=== PATIENT | male | born 2000 | race Two or more races ===

== ENCOUNTER 2022-04-21 17:04 | Inpatient (IN) ==
--- NOTE | 2022-04-21 20:16 | DR.GENAD ---
HPI Time Seen Time Seen by Provider: 04/21/22 20:15 PCP Primary Care Physician: NONE HPI Comment HPI Comment: Believes he was stung by a stingray about two weeks ago, spent one night in hospital and discharged on levaquin x 4 days, keflex and doxycycline for cellulitis of rt ankle; little improvement and placed on another round of keflex and doxycycline two days ago (?); ankle is still swollen, red and painful with "black" drainage intermittently; no fever, chills, abd pain, n/v/d. Complaint/Symptoms Chief Complaint:: PT STATES HE WAS BIT BY A STINGRAY X 10 DAYS AGO AND HE WENT TO THE HOSPITAL IN [place] AND WAS ADMITTED OVERNIGHT FOR IV ANTIBIOTICS. HE STATES IT IS NOT GETTING ANY BETTER, IT IS RED AND SWOLLEN AND HAS SOME BLACK DRAINAGE COMING OUT OF IT. HE STATES IT HURTS IN THE BONE. IT IS LOCATED ON THE RIGHT INNER ANKLE. Self Treatment fo Chief Complaint: PO ANTIBIOTICS, PAIN MEDS Source History Provided: Patient Mode of Arrival Mode of Arrival: Ambulatory Timing Onset of Chief Complaint: 04/11/22 PMH PMH Past Medical History: No Past Surgical History: No Family History History of Family Medical Conditions: No Social History Does patient currently use any type of tobacco product: No Have you used tobacco products in the last 12 months: No Type of Tobacco Use: None Does any household member use tobacco: No Alcohol Use: None Do you use any recreational Drugs:: No Lives With: Family Lives Where: Home Infectious screening In the last 2 months have you had wt loss of >10#?: NO Have you had fever, night sweats or hemotysis?: No Have you traveled outside the country in the last 6 months?: No Isolation: Standard ROS Review of Systems Constitutional: No Symptoms Reported Eyes: No Symptoms Reported ENTM: No Symptoms Reported Respiratoy: No Symptoms Reported Cardiovascular: No Symptoms Reported Gastrointestinal/Abdominal: No Symptoms Reported Genitourinary: No Symptoms Reported Neurological: No Symptoms Reported Integumentary: No Symptoms Reported Hematologic/Lymphatic: No Symptoms Reported Endocrine: No Symptoms Reported Psychiatric: No Symptoms Reported PE Vital Signs Vitals: Temperature 98.1 F Pulse Rate 79 Respiratory Rate 20 Blood Pressure 117/89 O2 Sat by Pulse Oximetry 100 General Limitations: No Limitations General Appearance: Alert and In No Apparent Distress Head Head Exam: Normal Inspection Eyes Eye exam: Normal Appearance ENT ENT Exam: Normal Exam External Ear Exam: Normal External Inspection TM/Canal Exam: Bilateral: Normal Nose Exam: Normal Nose Exam Mouth Exam: Normal Inspection Throat Exam: Normal Inspection Neck Neck Exam: Normal Inspection Chest Chest Inspection: Normal Inspection Respiratory Respiratory Exam: Normal Lung Sounds Bilat Respiratory Exam: Bilateral: Clear to Auscultation Cardiovascular Cardiovascular Exam: Regular Rate and Normal Rhythm Abdominal Exam Abdominal Exam: Normal Inspection, Normal Bowel Sounds and Soft Extremities Extremities Exam: Tenderness and Edema (red, swollen medial malleolus with streaking about 2 inch up mid lateral rooney, 1 cm black spot center of redness without drainage) Back Back Exam: Normal Inspection Neurologic Neurological Exam: Alert and Oriented X3 Psychiatric Psychiatric Exam: Normal Affect and Normal Mood MDM Differential Diagnosis Differential Diagnosis: foreign body, osteomyelitis, cellulitis, abscess COURSE Reevaluation 1st: Unchanged ROR Labs Reviewed Laboratory Results Reviewed?: Yes Result Diagrams: 04/22/22 03:15 04/22/22 03:15 Laboratory: WBC 10.6 X10^3/uL (3.6-10.0) H 04/21/22 20:54 RBC 5.17 X10^6/uL (4.7-6.0) 04/21/22 20:54 Hgb 15.4 g/dL (13.5-18.0) 04/21/22 20:54 Hct 43.6 % (42.0-54.0) 04/21/22 20:54 MCV 84.3 fL (80.0-100.0) 04/21/22 20:54 MCH 29.8 pg (27.0-34.0) 04/21/22 20:54 MCHC 35.3 g/dL (33.0-35.0) H 04/21/22 20:54 RDW 13.5 % (11.6-16.5) 04/21/22 20:54 Plt Count 271 X10^3/uL (150.0-450.0) 04/21/22 20:54 MPV 7.9 fL (7.4-11.0) 04/21/22 20:54 Neut % (Auto) 57.2 % (42.0-75.0) 04/21/22 20:54 Lymph % (Auto) 29.7 % (21.0-51.0) 04/21/22 20:54 [place] % (Auto) 7.9 % (0.0-13.0) 04/21/22 20:54 Eos % (Auto) 4.5 % (0.9-2.9) H 04/21/22 20:54 Baso % (Auto) 0.7 % (0.2-1.0) 04/21/22 20:54 Neut # (Auto) 6.1 x10^3/uL (2.2-4.8) H 04/21/22 20:54 Lymph # (Auto) 3.1 X10^3/uL (1.3-2.9) H 04/21/22 20:54 [place] # (Auto) 0.8 x10^3/uL (0.3-0.8) 04/21/22 20:54 Eos # (Auto) 0.5 x10^3/uL (0.0-0.2) H 04/21/22 20:54 Baso # (Auto) 0.1 X10^3/uL (0.0-0.1) 04/21/22 20:54 Absolute Nucleated RBC 0.0 /100WBC 04/21/22 20:54 Sodium 137 mmol/L (136-145) 04/21/22 20:54 Corrected Sodium TNP 04/21/22 20:54 Potassium 3.8 mmol/L (3.5-5.1) 04/21/22 20:54 Chloride 101 mmol/L (98-107) 04/21/22 20:54 Carbon Dioxide 28.0 mmol/L (21-32) 04/21/22 20:54 BUN 9 mg/dL (7-18) 04/21/22 20:54 Creatinine 0.75 mg/dL (0.70-1.30) 04/21/22 20:54 Est GFR (MDRD) Af Amer > 60 (>60) 04/21/22 20:54 Est GFR (MDRD) Non-Af > 60 (>60) 04/21/22 20:54 Glucose 90 mg/dL (65-99) 04/21/22 20:54 Calcium 9.0 mg/dL (8.5-10.1) 04/21/22 20:54 Corrected Calcium TNP 04/21/22 20:54 Total Bilirubin 0.40 mg/dL (0.2-1.0) 04/21/22 20:54 AST 23 Units/L (15-37) 04/21/22 20:54 ALT 27 Units/L (12-78) 04/21/22 20:54 Alkaline Phosphatase 85 Units/L (75-270) 04/21/22 20:54 Total Protein 8.1 g/dL (6.4-8.2) 04/21/22 20:54 Albumin 4.0 g/dL (3.4-5.0) 04/21/22 20:54 Globulin 4.1 g/dL (2.5-4.5) 04/21/22 20:54 Albumin/Globulin Ratio 1.0 Ratio (1.1-2.1) L 04/21/22 20:54 SARS-CoV-2 (PCR) Negative (NEGATIVE) 04/21/22 23:01 Influenza Type A (PCR) Negative (NEGATIVE) 04/21/22 23:01 Influenza Type B (PCR) Negative (NEGATIVE) 04/21/22 23:01 RSV (PCR) Negative (NEGATIVE) 04/21/22 23:01 XRAY XRAY Interpreted by: Self X-ray Results: rt ankle xr: no acute findings Opioid Opioid Risk Tool Total: 0 Total Score Risk Category: Low Risk Copyright: Brad BRUCE predicting aberrant behaviors Discharge Plan Diagnosis Discharge Problem: Ankle cellulitis Discharge Plan Patient Disposition: ADMITTED INPATIENT Condition: Stable
[2022-04-21] MEDS ORDERED: ZOSYN VIAL 3.375 GRAMS IV ONE (20:37)
[2022-04-21] MEDS ORDERED: NS 100 ML IV 100 ML ONE (20:38)
[2022-04-21] MEDS: ZOSYN VIAL 3.375 GRAMS 3.375 G in NS 100 ML IV 100 ML IV SCH ×2 (20:52→23:17)
[2022-04-21 21:06] LABS: BASOPHILS # (AUTO) 0.1 X10^3/uL (0.0-0.1); BASOPHILS % (AUTO) 0.7 % (0.2-1.0); EOSINOPHILS # (AUTO) 0.5 x10^3/uL (0.0-0.2); EOSINOPHILS % (AUTO) 4.5 % (0.9-2.9); HEMATOCRIT 43.6 % (42.0-54.0); HEMOGLOBIN 15.4 g/dL (13.5-18.0); LYMPHOCYTES # (AUTO) 3.1 X10^3/uL (1.3-2.9); LYMPHOCYTES % (AUTO) 29.7 % (21.0-51.0); MEAN CORPUSCULAR HEMOGLOBIN 29.8 pg (27.0-34.0); MEAN CORPUSCULAR HGB CONC 35.3 g/dL (33.0-35.0); MEAN CORPUSCULAR VOLUME 84.3 fL (80.0-100.0); MEAN PLATELET VOLUME 7.9 fL (7.4-11.0); MONOCYTES # (AUTO) 0.8 x10^3/uL (0.3-0.8); MONOCYTES % (AUTO) 7.9 % (0.0-13.0); NEUTROPHILS # (AUTO) 6.1 x10^3/uL (2.2-4.8); NEUTROPHILS % (AUTO) 57.2 % (42.0-75.0); RED BLOOD COUNT 5.17 X10^6/uL (4.7-6.0); RED CELL DISTRIBUTION WIDTH 13.5 % (11.6-16.5); WHITE BLOOD COUNT 10.6 X10^3/uL (3.6-10.0)
[2022-04-21 21:12] LABS: BLOOD UREA NITROGEN 9 mg/dL (7-18); CHLORIDE 101 mmol/L (98-107); CREATININE 0.75 mg/dL (0.70-1.30); SODIUM 137 mmol/L (136-145); eGFR NON BLACK RACES > 60 (>60)
[2022-04-21 21:30] LABS: ALANINE AMINOTRANSFERASE 27 Units/L (12-78); ALKALINE PHOSPHATASE 85 Units/L (75-270); ASPARTATE AMINO TRANSFERASE 23 Units/L (15-37); TOTAL PROTEIN 8.1 g/dL (6.4-8.2)
[2022-04-21] MEDS ORDERED: VANCOMYCIN IV *PREMIX 1 G/200 ML BAG 1 G/200 ML PIGGYBACK IV ONE (22:58)
[2022-04-21] MEDS ORDERED: ZOSYN VIAL 3.375 GRAMS 3.375 G in NS 100 ML IV 100 ML IV SCH (23:04)
[2022-04-21] MEDS ORDERED: NS 1,000 ML IV 1,000 ML ONE (23:05)
[2022-04-21] MEDS ORDERED: NS 250 ML IV 250 ML IV ONE (23:05)
[2022-04-21] MEDS ORDERED: VANCOMYCIN HCL ONE (23:05)
[2022-04-21] MEDS ORDERED: ZOFRAN INJ 4 MG VIAL IVP PRN (23:13)
[2022-04-21] MEDS: NS 1,000 ML IV 1,000 ML IV SCH (23:15)
[2022-04-21] MEDS ORDERED: PHARMACY CONSULT - VANCOMYCIN XX SCH (23:45)
[2022-04-22] MEDS ORDERED: BENADRYL INJ 50 MG VIAL ONE (00:33)
[2022-04-22] MEDS ORDERED: BENADRYL INJ 50 MG VIAL IVP ONE (00:42)
--- NOTE | 2022-04-22 01:36 | RAD ---
HISTORYPT STATES HE WAS BIT BY A STINGRAY X 10 DAYS AGO AND HE WENT TO THE HOSPITAL IN [place] AND WAS ADMITTED OVERNIGHT FOR IV ANTIBIOTICS. HE STATES IT IS NOT GETTING ANY BETTER, IT IS RED AND SWOLLEN AND HAS SOME BLACK DRAINAGE Relevant Clinical InformationSTUDMAYI, COMPARISONNone.FINDINGSNo acute cortical disruption or dislocation can be identified. The ankle mortise remains well aligned. There is soft tissue swelling of the medial ankle joint.. The visualized portions of the talus and calcaneus are unremarkable.IMPRESSION1. No acute fractures or dislocations.2. Soft tissue swelling of the medial ankle joint is noted.Electronically signed by: Dolores Jones (Apr 22, 2022 01:34:19)
[2022-04-22 04:38] LABS: ALANINE AMINOTRANSFERASE 26 Units/L (12-78); ALBUMIN 3.5 g/dL (3.4-5.0); ALKALINE PHOSPHATASE 82 Units/L (75-270); ASPARTATE AMINO TRANSFERASE 21 Units/L (15-37); BLOOD UREA NITROGEN 9 mg/dL (7-18); CALCIUM 8.4 mg/dL (8.5-10.1); CARBON DIOXIDE 28.5 mmol/L (21-32); CHLORIDE 104 mmol/L (98-107); SODIUM 139 mmol/L (136-145); TOTAL PROTEIN 7.2 g/dL (6.4-8.2); eGFR NON BLACK RACES > 60 (>60)
[2022-04-22 04:56] LABS: BASOPHILS # (AUTO) 0.1 X10^3/uL (0.0-0.1); BASOPHILS % (AUTO) 0.6 % (0.2-1.0); EOSINOPHILS # (AUTO) 0.4 x10^3/uL (0.0-0.2); EOSINOPHILS % (AUTO) 4.1 % (0.9-2.9); HEMATOCRIT 42.8 % (42.0-54.0); LYMPHOCYTES # (AUTO) 3.2 X10^3/uL (1.3-2.9); LYMPHOCYTES % (AUTO) 30.7 % (21.0-51.0); MEAN CORPUSCULAR HEMOGLOBIN 29.9 pg (27.0-34.0); MEAN CORPUSCULAR VOLUME 85.2 fL (80.0-100.0); MEAN PLATELET VOLUME 8.2 fL (7.4-11.0); MONOCYTES % (AUTO) 9.6 % (0.0-13.0); NEUTROPHILS # (AUTO) 5.7 x10^3/uL (2.2-4.8); RED BLOOD COUNT 5.02 X10^6/uL (4.7-6.0); RED CELL DISTRIBUTION WIDTH 13.6 % (11.6-16.5); WHITE BLOOD COUNT 10.3 X10^3/uL (3.6-10.0)
[2022-04-22] MEDS ORDERED: ZOSYN VIAL 3.375 GRAMS IV ONE ×2 (05:05→13:46)
[2022-04-22] MEDS ORDERED: NS 100 ML IV 100 ML ONE ×2 (05:06→13:47)
[2022-04-22] MEDS: ZOSYN VIAL 3.375 GRAMS 3.375 G in NS 100 ML IV 100 ML IV SCH ×3 (05:32→22:18)
--- NOTE | 2022-04-22 08:10 | DR.H&P ---
H&P History & Physical for Day of: H&P Date: 04/22/22 Chief Complaint Chief Complaint: Right ankle pain and swelling Allergies Allergies Allergy/AdvReac Type Severity Reaction Status Date / Time vancomycin Allergy Verified 04/22/22 01:15 History of Present Illness History of Present Illness: Pt is a 21 year old male no past medical history presenting with right ankle pain, edema, erythema w/ drainage for the past two weeks. [place] and believes he was stung by a stingray. He went to hospital stayed one day and was given Levaquin course to complete. He also states he had course of keflex and doxy but unclear where he was prescribed antibiotics. Denies fevers, chills. Labs/imaging: Wbc 10.3, Hgb 15, Plt 260, Na 139, K 3.9, Creatinine 0.90, Glucose 101, COVID-19 negative, XR right ankle was obtained that revealed:Soft tissue swelling of the medial ankle joint is noted. Pt admitted for ankle cellulitis. Will start on IV antibiotics: Clindamycin and Zosyn. Obtain CT ankle to further characterize infection. Will consult surgery-Dr Lamar for further evaluation of possible underlying abscess. On exam area not currently draining for cultures to be obtained. Will continue to closely monitor and follow up labs/imaging. Past Surgical History Surgical History: No History Social History Does patient currently use any type of tobacco product: No Have you used tobacco products in the last 12 months: No Type of Tobacco Use: None Does any household member use tobacco: No Alcohol Use: None Drug Use: None Medications Home Medications: vancomycin Allergy (Verified 04/22/22 01:15) CONTINUE taking the following medications cephalexin 500 mg capsule 1 cap PO TID 04/21/22 [History] doxycycline hyclate 100 mg capsule 1 cap PO BID 04/21/22 [History] Labs Result Diagrams: 04/22/22 03:15 04/22/22 03:15 Labs: Laboratory WBC 10.3 X10^3/uL (3.6-10.0) H 04/22/22 03:15 RBC 5.02 X10^6/uL (4.7-6.0) 04/22/22 03:15 Hgb 15.0 g/dL (13.5-18.0) 04/22/22 03:15 Hct 42.8 % (42.0-54.0) 04/22/22 03:15 MCV 85.2 fL (80.0-100.0) 04/22/22 03:15 MCH 29.9 pg (27.0-34.0) 04/22/22 03:15 MCHC 35.0 g/dL (33.0-35.0) 04/22/22 03:15 RDW 13.6 % (11.6-16.5) 04/22/22 03:15 Plt Count 260 X10^3/uL (150.0-450.0) 04/22/22 03:15 MPV 8.2 fL (7.4-11.0) 04/22/22 03:15 Neut % (Auto) 55.0 % (42.0-75.0) 04/22/22 03:15 Lymph % (Auto) 30.7 % (21.0-51.0) 04/22/22 03:15 [place] % (Auto) 9.6 % (0.0-13.0) 04/22/22 03:15 Eos % (Auto) 4.1 % (0.9-2.9) H 04/22/22 03:15 Baso % (Auto) 0.6 % (0.2-1.0) 04/22/22 03:15 Neut # (Auto) 5.7 x10^3/uL (2.2-4.8) H 04/22/22 03:15 Lymph # (Auto) 3.2 X10^3/uL (1.3-2.9) H 04/22/22 03:15 [place] # (Auto) 1.0 x10^3/uL (0.3-0.8) H 04/22/22 03:15 Eos # (Auto) 0.4 x10^3/uL (0.0-0.2) H 04/22/22 03:15 Baso # (Auto) 0.1 X10^3/uL (0.0-0.1) 04/22/22 03:15 Absolute Nucleated RBC 0.1 /100WBC 04/22/22 03:15 Sodium 139 mmol/L (136-145) 04/22/22 03:15 Corrected Sodium TNP 04/22/22 03:15 Potassium 3.9 mmol/L (3.5-5.1) 04/22/22 03:15 Chloride 104 mmol/L (98-107) 04/22/22 03:15 Carbon Dioxide 28.5 mmol/L (21-32) 04/22/22 03:15 BUN 9 mg/dL (7-18) 04/22/22 03:15 Creatinine 0.90 mg/dL (0.70-1.30) 04/22/22 03:15 Est GFR (MDRD) Af Amer > 60 (>60) 04/22/22 03:15 Est GFR (MDRD) Non-Af > 60 (>60) 04/22/22 03:15 Glucose 101 mg/dL (65-99) H 04/22/22 03:15 Calcium 8.4 mg/dL (8.5-10.1) L 04/22/22 03:15 Corrected Calcium TNP 04/22/22 03:15 Total Bilirubin 0.40 mg/dL (0.2-1.0) 04/22/22 03:15 AST 21 Units/L (15-37) 04/22/22 03:15 ALT 26 Units/L (12-78) 04/22/22 03:15 Alkaline Phosphatase 82 Units/L (75-270) 04/22/22 03:15 Total Protein 7.2 g/dL (6.4-8.2) 04/22/22 03:15 Albumin 3.5 g/dL (3.4-5.0) 04/22/22 03:15 Globulin 3.7 g/dL (2.5-4.5) 04/22/22 03:15 Albumin/Globulin Ratio 0.9 Ratio (1.1-2.1) L 04/22/22 03:15 SARS-CoV-2 (PCR) Negative (NEGATIVE) 04/21/22 23:01 Influenza Type A (PCR) Negative (NEGATIVE) 04/21/22 23:01 Influenza Type B (PCR) Negative (NEGATIVE) 04/21/22 23:01 RSV (PCR) Negative (NEGATIVE) 04/21/22 23:01 Review of Systems Constitutional: No Symptoms Reported Eyes: No Symptoms Reported ENT: No Symptoms Reported Respiratory: No Symptoms Reported Cardiovascular: No Symptoms Reported Gastrointestinal: No Symptoms Reported Genitourinary: No Symptoms Reported Musculoskeletal: No Symptoms Reported Skin: Other (swelling and redness right ankle) Neurological: No Symptoms Reported Physical Exam Vital Signs: Temperature 97.4 F Pulse Rate [Left Brachial] 73 Pulse Rate 79 Respiratory Rate 18 Blood Pressure [Left Arm] 90/54 Blood Pressure 117/89 O2 Sat by Pulse Oximetry 99 Oriented: Normal Eyes: Normal Ear: Normal Nose: Normal Throat: Normal Respiratory: Clear Throughout Cardiovascular: Normal : Normal Auscultation: Bowel Sounds: Normal Palpation: Normal Tenderness: Normal Skin: Normal and Other (erythema and edema right medial ankle) Musculoskeletal: Normal Psychiatric: Normal Mood Description: Calm and Appropriate Affect: Normal Speech Pattern: Clear and Appropriate Assessment/Plan (1) Ankle cellulitis: Narrative Support Text: IV antibiotics Order CT right ankle Consult surgery Status: Acute Review H&P Reviewed: Yes Patient was examined?: Yes
[2022-04-22] MEDS ORDERED: VANCOMYCIN IV *PREMIX 1.25 G/250 ML BAG 1.25 G/250 ML PIGGYBACK IV SCH (11:00)
[2022-04-22] MEDS ORDERED: CLEOCIN 600 MG IV PREMIX 600 MG/50 ML BAG IV ONE (13:46)
[2022-04-22] MEDS: CLEOCIN 600 MG IV PREMIX 600 MG/50 ML BAG IV SCH ×2 (13:51→22:18)
[2022-04-22] MEDS ORDERED: NS 1,000 ML IV 1,000 ML ONE (13:55)
--- NOTE | 2022-04-22 14:29 | CT ---
Exam:LOWER EXT WITH CONIndication: RIGHT ANKLE CELLULITIS; STUNG BY STINGRAY IN RIGHT ANKLE COUPLE DAYS AGOComparison: [None available]Technique: Axial images of the [right ankle] were obtained with coronal and sagittal reformatted images performed. Intravenous contrast administration [ was ] performed.Dose reduction techniques including Automated Exposure Control (AEC) and adjustment of mA and kV were utilized.Findings: [There is severe inflammatory change within the subcutaneous tissues of the right ankle, there is non localizing fluid demonstrating enhancement noted posterior to the medial malleolus for example on axial image 46. There is no drainable fluid collection in this location. There is heterogeneous fluid tracking along the posterior tibialis tendon with increased enhancement of the posterior tibialis tendon and myotendinous junction seen for example on axial image 29. The flexor hallucis longus and flexor digitorum longus tendons are grossly intact.There is no fracture of the medial or lateral malleolus. There is no periosteal reaction or cortical destruction of the medial malleolus to suggest osteomyelitis.Os trigonum is noted, mild degenerative change at the pseudoarticulation is noted.Achilles tendon and plantar fascia are grossly intact.IMPRESSIONFairly severe inflammatory change and infection within subcutaneous tissues posterior to the medial malleolus, no drainable fluid collection is present however developing phlegmon is noted posterior to the medial malleolus.Increased enhancement and peritendonous fluid within the posterior tibialis tendon extending to the myotendinous junction is consistent with an infectious tenosynovitis.No periosteal reaction or cortical destruction of the medial malleolus to suggest an acute osteomyelitisSurgical consultation recommended for further evaluation.Incidental, nonacute findings as described above.Electronically signed by: PAYTON YUSUF (Apr 22, 2022 14:27:38)
[2022-04-22] MEDS: NS 1,000 ML IV 1,000 ML IV SCH (14:48)
[2022-04-23] MEDS: NS 1,000 ML IV 1,000 ML IV SCH ×2 (05:43→21:33)
[2022-04-23] MEDS: ZOSYN VIAL 3.375 GRAMS 3.375 G in NS 100 ML IV 100 ML IV SCH ×3 (05:44→21:33)
[2022-04-23] MEDS: CLEOCIN 600 MG IV PREMIX 600 MG/50 ML BAG IV SCH ×3 (05:44→21:33)
[2022-04-23 06:11] LABS: BASOPHILS # (AUTO) 0.1 X10^3/uL (0.0-0.1); BASOPHILS % (AUTO) 0.7 % (0.2-1.0); EOSINOPHILS # (AUTO) 0.4 x10^3/uL (0.0-0.2); EOSINOPHILS % (AUTO) 4.4 % (0.9-2.9); HEMATOCRIT 41.9 % (42.0-54.0); HEMOGLOBIN 14.6 g/dL (13.5-18.0); LYMPHOCYTES # (AUTO) 2.5 X10^3/uL (1.3-2.9); LYMPHOCYTES % (AUTO) 27.2 % (21.0-51.0); MEAN CORPUSCULAR HEMOGLOBIN 29.6 pg (27.0-34.0); MEAN CORPUSCULAR HGB CONC 34.9 g/dL (33.0-35.0); MEAN PLATELET VOLUME 8.3 fL (7.4-11.0); MONOCYTES # (AUTO) 0.9 x10^3/uL (0.3-0.8); MONOCYTES % (AUTO) 10.2 % (0.0-13.0); NEUTROPHILS # (AUTO) 5.2 x10^3/uL (2.2-4.8); NEUTROPHILS % (AUTO) 57.5 % (42.0-75.0); RED BLOOD COUNT 4.92 X10^6/uL (4.7-6.0); RED CELL DISTRIBUTION WIDTH 13.4 % (11.6-16.5)
[2022-04-23 06:23] LABS: ALANINE AMINOTRANSFERASE 23 Units/L (12-78); ALBUMIN 3.4 g/dL (3.4-5.0); ALKALINE PHOSPHATASE 77 Units/L (75-270); ASPARTATE AMINO TRANSFERASE 19 Units/L (15-37); BLOOD UREA NITROGEN 6 mg/dL (7-18); CALCIUM 8.8 mg/dL (8.5-10.1); CARBON DIOXIDE 26.2 mmol/L (21-32); CHLORIDE 104 mmol/L (98-107); CREATININE 0.84 mg/dL (0.70-1.30); SODIUM 138 mmol/L (136-145); eGFR NON BLACK RACES > 60 (>60)
--- NOTE | 2022-04-23 09:35 | DR.CONSULT ---
CONSULT Consultation for Day of: Date: 04/22/22 Chief Complaint Chief Complaint: Wound and swelling right ankle posterior to right medial malleolus Allergies Allergies Allergy/AdvReac Type Severity Reaction Status Date / Time vancomycin Allergy Verified 04/22/22 01:15 History of Present Illness History of Present Illness: 21 yo male received " stingray sting" to right medial ankle 12 days ago. Admitted overnight at [facility]. Now on multiple po antibiotics and has pain and swelling still over the site of the injury to posterior area of right medial malleolus. Past Surgical History Surgical History: No History Social History Does patient currently use any type of tobacco product: No Have you used tobacco products in the last 12 months: No Type of Tobacco Use: None Does any household member use tobacco: No Alcohol Use: None Drug Use: None Medications Home Medications: vancomycin Allergy (Verified 04/22/22 01:15) CONTINUE taking the following medications cephalexin 500 mg capsule 1 cap PO TID 04/21/22 [History] doxycycline hyclate 100 mg capsule 1 cap PO BID 04/21/22 [History] Review of Systems Constitutional: See HPI Eyes: No Symptoms Reported ENT: No Symptoms Reported Respiratory: No Symptoms Reported Cardiovascular: No Symptoms Reported Gastrointestinal: No Symptoms Reported Genitourinary: No Symptoms Reported Musculoskeletal: No Symptoms Reported Skin: See HPI Neurological: No Symptoms Reported Physical Exam Vital Signs: Temperature 98.3 F Pulse Rate [Left Brachial] 62 Pulse Rate 79 Respiratory Rate 18 Blood Pressure [Left Arm] 96/47 Blood Pressure 117/89 O2 Sat by Pulse Oximetry 98 wbc=9.0,, CT right ankle Phelgmon of area of concern right medial ankle Oriented: Normal, Time, Person and Place Eyes: Normal Ear: Normal Nose: Normal Throat: Normal Respiratory: Clear Throughout Cardiovascular: Normal : Normal Auscultation: Bowel Sounds: Normal Palpation: Normal Tenderness: Normal Skin: Other (5 cm area induration of posterior aspect right medial malleolus, no significant redness, tender to touch) Plan (1) Ankle cellulitis: Status: Acute Narrative Support Text: Continue IV antibiotics , Will plan incision and drainage of this area of phlegmon right medial ankle in the OR.
[2022-04-23] MEDS ORDERED: VERSED ONE (11:47)
[2022-04-23] MEDS ORDERED: FENTANYL VIAL INJ 100 mcg ONE (11:47)
[2022-04-23] MEDS ORDERED: LR 1,000 ML IV 1,000 ML IV ONE (11:50)
[2022-04-23] MEDS ORDERED: POLYMYXIN B SULFATE ONE (11:52)
[2022-04-23] MEDS ORDERED: BETADINE SOLN ONE (11:53)
[2022-04-23] MEDS ORDERED: DIPRIVAN VIAL 20 ML ONE (11:57)
[2022-04-23] MEDS ORDERED: MARCAINE 0.5% ONE (12:04)
[2022-04-23] MEDS ORDERED: XYLOCAINE 1 % (PLAIN) ONE (12:05)
--- NOTE | 2022-04-23 13:35 | OR.IMMED ---
IMMEDIATE POST-OP NOTE Immediate Post-Op Note Pre-Op Diagnosis: Abscess/ Phlegmon right medial ankle Post-Op Diagnosis: same Procedure: Incise, drain and pack abscess/ phlegmon of the right medial ankle Description of Procedure: see operative summary Surgeon/Horse Show Judge: Brianda Specimens Removed: Wound cultured Complications: none Progress Notes: To floor, continue IV antibiotics, pack wound daily, await cultures and sensitivities. Final Diagnosis: Abscess/ Phlegmon right medial ankle after sting ray sting.
--- NOTE | 2022-04-23 13:46 | DR.OPNOTE ---
OP NOTE Pre-Op Diagnosis: Abscess /phlegmon right medial ankle after stingray sting Post-Op Diagnosis: same Procedure Date Date Of Procedure: 04/23/22 Procedure: PROCEDURE : Incision, drainage and packing of abscess right medial ankle NARRATIVE: The patient was taken to the operating suite and placed in the Supine position and given IV sedation which was supervised by myself . Time out for the procedure obtained. The right medial ankle had been prepped and draped in sterile fashion. The skin over lying the abscess transversely was infiltrated with 5 CC the 0. 5% Marcaine. A 4 cm incision was made transversely with drainage of fluid and pus. Cultures obtained. There appeared to be an infected hematoma which was irrigated with saline and suctioned free. Hemostasis obtained with electrocautery . Wound packed with saline soaked gauze and covered with dry dressing. Patients taken to the recovery room in good condition . Type of Anesthesia: Local (0.5 5 Marcaine) Anesthesia Comment: plus MAC Findings: as above Specimen/Pathology: cultures EBL: minimal Cultures: yes Complications:: none Disposition/Condition: Pt. tolerated procedure without difficulty. Taken PACU in stable condition.
[2022-04-23] MEDS: ULTRAM PO PRN ×2 (14:42→23:15)
--- NOTE | 2022-04-23 15:07 | PCM.PROG ---
Progress Note Progress Note for Day of Date of Exam: 04/23/22 Subjective Subjective: Pt is a 21 year old male no past medical history admitted for right ankle cellulitis and abscess. This morning he reports some improvement in pain and swelling of right ankle. No acute events overnight. Labs/imaging: Wbc 9, Hgb 14.6, Plt 241, Na 138, K 3.7, Creatinine 0.84, Glucose 103. CT right ankle was obtained that revealed: Fairly severe inflammatory change and infection within subcutaneous tissues posterior to the medial malleolus, no drainable fluid collection is present however developing phlegmon is noted posterior to the medial malleolus. Increased enhancement and peritendonous fluid within the posterior tibialis tendon extending to the myotendinous junction is consistent w ith an infectious tenosynovitis. Pt is currently on IV antibiotics: Clindamycin and Zosyn. Leukocytosis trending down. General surgery was consulted-Dr Lamar, plan for incision and drainage today. Otherwise, will continue with current treatment plan. Continue to closely monitor. Past Medical Family Social History Allergies: Allergies vancomycin Allergy (Verified 04/22/22 01:15) Vital Signs and I&O's Vital Signs: Temperature 98.5 F Pulse Rate [Bilateral Radial] 62 Pulse Rate [Left Brachial] 62 Pulse Rate 91 Respiratory Rate 18 Blood Pressure [Left Arm] 110/57 Blood Pressure 122/73 O2 Sat by Pulse Oximetry 100 Intake and Output: Intake & Output 04/20/22 04/21/22 04/22/22 04/23/22 23:59 23:59 23:59 23:59 Intake Total 3370 / 3370 900 / 900 Output Total 102 / 102 Balance 3370 / 3370 798 / 798 Physical Exam Oriented: Normal, Time, Person and Place Eyes: Normal Ear: Normal Nose: Normal Throat: Normal Cardiovascular: Normal : Normal Auscultation: Bowel Sounds: Normal Tenderness: Normal Skin: Other (5 cm area induration of posterior aspect right medial malleolus, no significant redness, tender to touch) Musculoskeletal: Normal Psychiatric: Normal Mood Description: Calm and Appropriate Affect: Normal Speech Pattern: Clear and Appropriate Laboratory and Diagnostics Result Diagrams: 04/23/22 05:27 04/23/22 05:27 Labs: 04/23/22 12:19 Ankle - Right Wound Gram Stain - Final Laboratory WBC 9.0 X10^3/uL (3.6-10.0) 04/23/22 05:27 RBC 4.92 X10^6/uL (4.7-6.0) 04/23/22 05:27 Hgb 14.6 g/dL (13.5-18.0) 04/23/22 05:27 Hct 41.9 % (42.0-54.0) L 04/23/22 05:27 MCV 85.0 fL (80.0-100.0) 04/23/22 05:27 MCH 29.6 pg (27.0-34.0) 04/23/22 05:27 MCHC 34.9 g/dL (33.0-35.0) 04/23/22 05:27 RDW 13.4 % (11.6-16.5) 04/23/22 05:27 Plt Count 241 X10^3/uL (150.0-450.0) 04/23/22 05:27 MPV 8.3 fL (7.4-11.0) 04/23/22 05:27 Neut % (Auto) 57.5 % (42.0-75.0) 04/23/22 05:27 Lymph % (Auto) 27.2 % (21.0-51.0) 04/23/22 05:27 [place] % (Auto) 10.2 % (0.0-13.0) 04/23/22 05:27 Eos % (Auto) 4.4 % (0.9-2.9) H 04/23/22 05:27 Baso % (Auto) 0.7 % (0.2-1.0) 04/23/22 05:27 Neut # (Auto) 5.2 x10^3/uL (2.2-4.8) H 04/23/22 05:27 Lymph # (Auto) 2.5 X10^3/uL (1.3-2.9) 04/23/22 05:27 [place] # (Auto) 0.9 x10^3/uL (0.3-0.8) H 04/23/22 05:27 Eos # (Auto) 0.4 x10^3/uL (0.0-0.2) H 04/23/22 05:27 Baso # (Auto) 0.1 X10^3/uL (0.0-0.1) 04/23/22 05:27 Absolute Nucleated RBC 0.1 /100WBC 04/23/22 05:27 Sodium 138 mmol/L (136-145) 04/23/22 05:27 Corrected Sodium TNP 04/23/22 05:27 Potassium 3.7 mmol/L (3.5-5.1) 04/23/22 05:27 Chloride 104 mmol/L (98-107) 04/23/22 05:27 Carbon Dioxide 26.2 mmol/L (21-32) 04/23/22 05:27 BUN 6 mg/dL (7-18) L 04/23/22 05:27 Creatinine 0.84 mg/dL (0.70-1.30) 04/23/22 05:27 Est GFR (MDRD) Af Amer > 60 (>60) 04/23/22 05:27 Est GFR (MDRD) Non-Af > 60 (>60) 04/23/22 05:27 Glucose 103 mg/dL (65-99) H 04/23/22 05:27 Calcium 8.8 mg/dL (8.5-10.1) 04/23/22 05:27 Corrected Calcium TNP 04/23/22 05:27 Total Bilirubin 0.40 mg/dL (0.2-1.0) 04/23/22 05:27 AST 19 Units/L (15-37) 04/23/22 05:27 ALT 23 Units/L (12-78) 04/23/22 05:27 Alkaline Phosphatase 77 Units/L (75-270) 04/23/22 05:27 Total Protein 7.0 g/dL (6.4-8.2) 04/23/22 05:27 Albumin 3.4 g/dL (3.4-5.0) 04/23/22 05:27 Globulin 3.6 g/dL (2.5-4.5) 04/23/22 05:27 Albumin/Globulin Ratio 0.9 Ratio (1.1-2.1) L 04/23/22 05:27 SARS-CoV-2 (PCR) Negative (NEGATIVE) 04/21/22 23:01 Influenza Type A (PCR) Negative (NEGATIVE) 04/21/22 23:01 Influenza Type B (PCR) Negative (NEGATIVE) 04/21/22 23:01 RSV (PCR) Negative (NEGATIVE) 04/21/22 23:01 Plan (1) Ankle cellulitis: Status: Acute Plan: IV abx (2) Abscess of ankle: Status: Acute Plan: I&D today
[2022-04-24 05:11] LABS: BASOPHILS # (AUTO) 0.1 X10^3/uL (0.0-0.1); BASOPHILS % (AUTO) 0.7 % (0.2-1.0); EOSINOPHILS # (AUTO) 0.4 x10^3/uL (0.0-0.2); EOSINOPHILS % (AUTO) 4.2 % (0.9-2.9); HEMATOCRIT 41.8 % (42.0-54.0); HEMOGLOBIN 14.7 g/dL (13.5-18.0); LYMPHOCYTES # (AUTO) 2.7 X10^3/uL (1.3-2.9); LYMPHOCYTES % (AUTO) 27.9 % (21.0-51.0); MEAN CORPUSCULAR HEMOGLOBIN 29.6 pg (27.0-34.0); MEAN CORPUSCULAR HGB CONC 35.1 g/dL (33.0-35.0); MEAN CORPUSCULAR VOLUME 84.3 fL (80.0-100.0); MEAN PLATELET VOLUME 7.9 fL (7.4-11.0); MONOCYTES % (AUTO) 10.1 % (0.0-13.0); NEUTROPHILS # (AUTO) 5.5 x10^3/uL (2.2-4.8); NEUTROPHILS % (AUTO) 57.1 % (42.0-75.0); RED BLOOD COUNT 4.96 X10^6/uL (4.7-6.0); RED CELL DISTRIBUTION WIDTH 13.5 % (11.6-16.5); WHITE BLOOD COUNT 9.7 X10^3/uL (3.6-10.0)
[2022-04-24 05:13] LABS: ALANINE AMINOTRANSFERASE 24 Units/L (12-78); ALBUMIN 3.6 g/dL (3.4-5.0); ALKALINE PHOSPHATASE 74 Units/L (75-270); ASPARTATE AMINO TRANSFERASE 14 Units/L (15-37); BLOOD UREA NITROGEN 7 mg/dL (7-18); CALCIUM 8.7 mg/dL (8.5-10.1); CARBON DIOXIDE 27.3 mmol/L (21-32); CHLORIDE 103 mmol/L (98-107); CREATININE 0.88 mg/dL (0.70-1.30); SODIUM 138 mmol/L (136-145); TOTAL PROTEIN 7.4 g/dL (6.4-8.2); eGFR NON BLACK RACES > 60 (>60)
[2022-04-24] MEDS: CLEOCIN 600 MG IV PREMIX 600 MG/50 ML BAG IV SCH ×3 (05:28→21:08)
[2022-04-24] MEDS: ZOSYN VIAL 3.375 GRAMS 3.375 G in NS 100 ML IV 100 ML IV SCH ×3 (05:29→21:47)
[2022-04-24] MEDS: NS 1,000 ML IV 1,000 ML IV SCH ×2 (05:29→15:10)
--- NOTE | 2022-04-24 07:51 | PCM.PROG ---
Progress Note Progress Note for Day of Date of Exam: 04/24/22 Subjective Subjective: Pt is a 21 year old male no past medical history admitted for right ankle cellulitis and abscess. He is s/p incision and drainage of abscess with discovery of infected hematoma. This morning he reports some improvement, he had right ankle wound dressing wrapped. Labs/imaging: Wbc 9.7, Hgb 14.7, Plt 257, Na 138, K 3.6, Creatinine 0.88, Glucose 99. Pt is currently on IV antibiotics: Clindamycin and Zosyn. Scheduled dressing changes have been ordered. Wound cultures are pending. General surgery-Dr Lamar following. Otherwise, will continue with current treatment plan. Continue to closely monitor. Past Medical Family Social History Allergies: Allergies vancomycin Allergy (Verified 04/22/22 01:15) Vital Signs and I&O's Vital Signs: Temperature 98.9 F Pulse Rate [Bilateral Radial] 79 Pulse Rate [Left Brachial] 62 Pulse Rate 91 Respiratory Rate 20 Blood Pressure [Left Arm] 104/59 Blood Pressure 122/73 O2 Sat by Pulse Oximetry 100 Intake and Output: Intake & Output 04/21/22 04/22/22 04/23/22 04/24/22 23:59 23:59 23:59 23:59 Intake Total 3370 / 3370 1551 / 1551 440 / 440 Output Total 627 / 627 225 / 225 Balance 3370 / 3370 924 / 924 215 / 215 Physical Exam Oriented: Normal, Time, Person and Place Eyes: Normal Ear: Normal Nose: Normal Throat: Normal Cardiovascular: Normal : Normal Auscultation: Bowel Sounds: Normal Tenderness: Normal Skin: Other (Wound dressing on right medial malleolus) Musculoskeletal: Normal Psychiatric: Normal Mood Description: Calm and Appropriate Affect: Normal Speech Pattern: Clear and Appropriate Laboratory and Diagnostics Result Diagrams: 04/24/22 04:30 04/24/22 04:30 Labs: 04/23/22 12:19 Ankle - Right Wound Gram Stain - Final Laboratory WBC 9.7 X10^3/uL (3.6-10.0) 04/24/22 04:30 RBC 4.96 X10^6/uL (4.7-6.0) 04/24/22 04:30 Hgb 14.7 g/dL (13.5-18.0) 04/24/22 04:30 Hct 41.8 % (42.0-54.0) L 04/24/22 04:30 MCV 84.3 fL (80.0-100.0) 04/24/22 04:30 MCH 29.6 pg (27.0-34.0) 04/24/22 04:30 MCHC 35.1 g/dL (33.0-35.0) H 04/24/22 04:30 RDW 13.5 % (11.6-16.5) 04/24/22 04:30 Plt Count 257 X10^3/uL (150.0-450.0) 04/24/22 04:30 MPV 7.9 fL (7.4-11.0) 04/24/22 04:30 Neut % (Auto) 57.1 % (42.0-75.0) 04/24/22 04:30 Lymph % (Auto) 27.9 % (21.0-51.0) 04/24/22 04:30 [place] % (Auto) 10.1 % (0.0-13.0) 04/24/22 04:30 Eos % (Auto) 4.2 % (0.9-2.9) H 04/24/22 04:30 Baso % (Auto) 0.7 % (0.2-1.0) 04/24/22 04:30 Neut # (Auto) 5.5 x10^3/uL (2.2-4.8) H 04/24/22 04:30 Lymph # (Auto) 2.7 X10^3/uL (1.3-2.9) 04/24/22 04:30 [place] # (Auto) 1.0 x10^3/uL (0.3-0.8) H 04/24/22 04:30 Eos # (Auto) 0.4 x10^3/uL (0.0-0.2) H 04/24/22 04:30 Baso # (Auto) 0.1 X10^3/uL (0.0-0.1) 04/24/22 04:30 Absolute Nucleated RBC 0.0 /100WBC 04/24/22 04:30 Sodium 138 mmol/L (136-145) 04/24/22 04:30 Corrected Sodium TNP 04/24/22 04:30 Potassium 3.6 mmol/L (3.5-5.1) 04/24/22 04:30 Chloride 103 mmol/L (98-107) 04/24/22 04:30 Carbon Dioxide 27.3 mmol/L (21-32) 04/24/22 04:30 BUN 7 mg/dL (7-18) 04/24/22 04:30 Creatinine 0.88 mg/dL (0.70-1.30) 04/24/22 04:30 Est GFR (MDRD) Af Amer > 60 (>60) 04/24/22 04:30 Est GFR (MDRD) Non-Af > 60 (>60) 04/24/22 04:30 Glucose 99 mg/dL (65-99) 04/24/22 04:30 Calcium 8.7 mg/dL (8.5-10.1) 04/24/22 04:30 Corrected Calcium TNP 04/24/22 04:30 Total Bilirubin 0.40 mg/dL (0.2-1.0) 04/24/22 04:30 AST 14 Units/L (15-37) L 04/24/22 04:30 ALT 24 Units/L (12-78) 04/24/22 04:30 Alkaline Phosphatase 74 Units/L (75-270) L 04/24/22 04:30 Total Protein 7.4 g/dL (6.4-8.2) 04/24/22 04:30 Albumin 3.6 g/dL (3.4-5.0) 04/24/22 04:30 Globulin 3.8 g/dL (2.5-4.5) 04/24/22 04:30 Albumin/Globulin Ratio 0.9 Ratio (1.1-2.1) L 04/24/22 04:30 SARS-CoV-2 (PCR) Negative (NEGATIVE) 04/21/22 23:01 Influenza Type A (PCR) Negative (NEGATIVE) 04/21/22 23:01 Influenza Type B (PCR) Negative (NEGATIVE) 04/21/22 23:01 RSV (PCR) Negative (NEGATIVE) 04/21/22 23:01 Plan (1) Ankle cellulitis: Status: Acute Plan: IV abx (2) Abscess of ankle: Status: Acute Plan: I&D today
[2022-04-24 21:39] VITALS: BMI 27.1
[2022-04-25] MEDS: NS 1,000 ML IV 1,000 ML IV SCH ×4 (04:56→20:52)
[2022-04-25 05:11] LABS: BASOPHILS # (AUTO) 0.1 X10^3/uL (0.0-0.1); BASOPHILS % (AUTO) 0.6 % (0.2-1.0); EOSINOPHILS # (AUTO) 0.5 x10^3/uL (0.0-0.2); EOSINOPHILS % (AUTO) 4.3 % (0.9-2.9); HEMATOCRIT 42.6 % (42.0-54.0); LYMPHOCYTES # (AUTO) 2.2 X10^3/uL (1.3-2.9); LYMPHOCYTES % (AUTO) 20.7 % (21.0-51.0); MEAN CORPUSCULAR HEMOGLOBIN 29.8 pg (27.0-34.0); MEAN CORPUSCULAR HGB CONC 35.2 g/dL (33.0-35.0); MEAN CORPUSCULAR VOLUME 84.8 fL (80.0-100.0); MEAN PLATELET VOLUME 8.2 fL (7.4-11.0); MONOCYTES # (AUTO) 0.9 x10^3/uL (0.3-0.8); MONOCYTES % (AUTO) 8.6 % (0.0-13.0); NEUTROPHILS # (AUTO) 7.1 x10^3/uL (2.2-4.8); NEUTROPHILS % (AUTO) 65.8 % (42.0-75.0); RED BLOOD COUNT 5.02 X10^6/uL (4.7-6.0); RED CELL DISTRIBUTION WIDTH 13.7 % (11.6-16.5); WHITE BLOOD COUNT 10.8 X10^3/uL (3.6-10.0)
[2022-04-25 05:23] LABS: ALANINE AMINOTRANSFERASE 25 Units/L (12-78); ALBUMIN 3.7 g/dL (3.4-5.0); ALKALINE PHOSPHATASE 75 Units/L (75-270); ASPARTATE AMINO TRANSFERASE 16 Units/L (15-37); BLOOD UREA NITROGEN 7 mg/dL (7-18); CALCIUM 8.8 mg/dL (8.5-10.1); CARBON DIOXIDE 27.6 mmol/L (21-32); CHLORIDE 102 mmol/L (98-107); CREATININE 0.78 mg/dL (0.70-1.30); SODIUM 137 mmol/L (136-145); TOTAL PROTEIN 7.5 g/dL (6.4-8.2); eGFR NON BLACK RACES > 60 (>60)
[2022-04-25] MEDS: CLEOCIN 600 MG IV PREMIX 600 MG/50 ML BAG IV SCH ×3 (05:25→21:12)
[2022-04-25] MEDS: ZOSYN VIAL 3.375 GRAMS 3.375 G in NS 100 ML IV 100 ML IV SCH ×3 (06:02→21:41)
[2022-04-25] MEDS: K-DUR TAB 20 MEQ PO PRN (06:25)
--- NOTE | 2022-04-25 11:37 | DR.PROGNOT ---
Hospital Progress Notes - Progress Note for Day of: Progress Note Date: 04/25/22 - Chief Complaint Chief Complaint: c/o pain at incision site . C&S is negative so far. minimal drainage . packing was removed .. - Past Medical Family Social History Past Med/Fam/Surg Hx: No changes since H&P Allergies: Allergies vancomycin Allergy (Verified 04/22/22 01:15) - Review Of Systems ROS: No change since H&P - Vital Signs Vital Signs: Temperature 98.3 F Pulse Rate [Bilateral Radial] 68 Pulse Rate [Left Brachial] 62 Pulse Rate 91 Respiratory Rate 18 Blood Pressure [Right Arm] 107/68 Blood Pressure [Left Arm] 112/64 Blood Pressure 122/73 O2 Sat by Pulse Oximetry 99 - Physical Exam Oriented: Normal, Time, Person, Place Eyes: Normal Ear: Normal Nose: Normal Throat: Normal Cardiovascular: Normal : Normal GI:Auscultation: Normal GI:Palpation: Normal GI: Tenderness: Normal Skin: Other (subsiding cellulitis .open wound 3 cm .. no active infection , no necrosis ..) Musculoskeletal: Normal Psychiatric: Normal Mood Description: Calm, Appropriate Affect: Normal Speech Pattern: Clear, Appropriate - Laboratory and Diagnostics Result Diagrams: 04/25/22 04:36 04/25/22 04:36 Labs: 04/23/22 12:19 Ankle - Right Wound Gram Stain - Final 04/23/22 12:19 Ankle - Right Wound Culture - Preliminary Laboratory WBC 10.8 X10^3/uL (3.6-10.0) H 04/25/22 04:36 RBC 5.02 X10^6/uL (4.7-6.0) 04/25/22 04:36 Hgb 15.0 g/dL (13.5-18.0) 04/25/22 04:36 Hct 42.6 % (42.0-54.0) 04/25/22 04:36 MCV 84.8 fL (80.0-100.0) 04/25/22 04:36 MCH 29.8 pg (27.0-34.0) 04/25/22 04:36 MCHC 35.2 g/dL (33.0-35.0) H 04/25/22 04:36 RDW 13.7 % (11.6-16.5) 04/25/22 04:36 Plt Count 267 X10^3/uL (150.0-450.0) 04/25/22 04:36 MPV 8.2 fL (7.4-11.0) 04/25/22 04:36 Neut % (Auto) 65.8 % (42.0-75.0) 04/25/22 04:36 Lymph % (Auto) 20.7 % (21.0-51.0) L 04/25/22 04:36 [place] % (Auto) 8.6 % (0.0-13.0) 04/25/22 04:36 Eos % (Auto) 4.3 % (0.9-2.9) H 04/25/22 04:36 Baso % (Auto) 0.6 % (0.2-1.0) 04/25/22 04:36 Neut # (Auto) 7.1 x10^3/uL (2.2-4.8) H 04/25/22 04:36 Lymph # (Auto) 2.2 X10^3/uL (1.3-2.9) 04/25/22 04:36 [place] # (Auto) 0.9 x10^3/uL (0.3-0.8) H 04/25/22 04:36 Eos # (Auto) 0.5 x10^3/uL (0.0-0.2) H 04/25/22 04:36 Baso # (Auto) 0.1 X10^3/uL (0.0-0.1) 04/25/22 04:36 Absolute Nucleated RBC 0.0 /100WBC 04/25/22 04:36 Sodium 137 mmol/L (136-145) 04/25/22 04:36 Corrected Sodium TNP 04/25/22 04:36 Potassium 3.6 mmol/L (3.5-5.1) 04/25/22 04:36 Chloride 102 mmol/L (98-107) 04/25/22 04:36 Carbon Dioxide 27.6 mmol/L (21-32) 04/25/22 04:36 BUN 7 mg/dL (7-18) 04/25/22 04:36 Creatinine 0.78 mg/dL (0.70-1.30) 04/25/22 04:36 Est GFR (MDRD) Af Amer > 60 (>60) 04/25/22 04:36 Est GFR (MDRD) Non-Af > 60 (>60) 04/25/22 04:36 Glucose 101 mg/dL (65-99) H 04/25/22 04:36 Calcium 8.8 mg/dL (8.5-10.1) 04/25/22 04:36 Corrected Calcium TNP 04/25/22 04:36 Magnesium 2.1 mg/dL (1.7-2.9) 04/25/22 04:36 Total Bilirubin 0.40 mg/dL (0.2-1.0) 04/25/22 04:36 AST 16 Units/L (15-37) 04/25/22 04:36 ALT 25 Units/L (12-78) 04/25/22 04:36 Alkaline Phosphatase 75 Units/L (75-270) 04/25/22 04:36 Total Protein 7.5 g/dL (6.4-8.2) 04/25/22 04:36 Albumin 3.7 g/dL (3.4-5.0) 04/25/22 04:36 Globulin 3.8 g/dL (2.5-4.5) 04/25/22 04:36 Albumin/Globulin Ratio 1.0 Ratio (1.1-2.1) L 04/25/22 04:36 SARS-CoV-2 (PCR) Negative (NEGATIVE) 04/21/22 23:01 Influenza Type A (PCR) Negative (NEGATIVE) 04/21/22 23:01 Influenza Type B (PCR) Negative (NEGATIVE) 04/21/22 23:01 RSV (PCR) Negative (NEGATIVE) 04/21/22 23:01 - Assessment and Plan 1: infected woun RT foot .. same IV ABT . leg elevation and local care . - Problem Patient Problems: Patient Problems Ankle cellulitis (Acute) L03.119
[2022-04-25] MEDS: ULTRAM PO PRN (11:43)
--- NOTE | 2022-04-25 15:29 | PCM.PROG ---
Progress Note Progress Note for Day of Date of Exam: 04/25/22 Subjective Subjective: Pt is a 21 year old male no past medical history admitted for right ankle cellulitis and abscess. He is s/p incision and drainage of abscess with discovery of infected hematoma. This morning he reports some improvement, he had right ankle wound dressing wrapped. Pt is currently on IV antibiotics: Clindamycin and Zosyn. Scheduled dressing changes have been ordered. Wound cultures are pending. General surgery-Dr Lamar following. Otherwise, will continue with current treatment plan. Continue to closely monitor. The patient reports he is feeling better this morning regarding his ankle infection. There is less pain and upon exam there is no significant erythema and no purulent drainage nor odor. Dr. Alcocer our general surgeon is comfortable a lot continue to recommend IV antibiotics which include Zosyn and clindamycin and he removed the packing today. If he continues to do well only we may discharge patient home tomorrow morning. Past Medical Family Social History Past Med/Fam/Surg Hx: No changes since H&P Allergies: Allergies vancomycin Allergy (Verified 04/22/22 01:15) Review of Systems ROS: No change since H&P Vital Signs and I&O's Vital Signs: Temperature 97.9 F Pulse Rate [Bilateral Radial] 74 Pulse Rate [Left Brachial] 62 Pulse Rate 91 Respiratory Rate 18 Blood Pressure [Right Arm] 121/58 Blood Pressure [Left Arm] 112/64 Blood Pressure 122/73 O2 Sat by Pulse Oximetry 99 Intake and Output: Intake & Output 04/23/22 04/24/22 04/25/22 04/26/22 11:59 11:59 11:59 11:59 Intake Total 2881 / 2881 1391 / 1391 1860 / 1860 550 / 550 Output Total 852 / 852 1000 / 1000 Balance 2881 / 2881 539 / 539 860 / 860 550 / 550 Physical Exam Oriented: Normal, Time, Person and Place Eyes: Normal Ear: Normal Nose: Normal Throat: Normal Respiratory: Normal Cardiovascular: Normal : Normal Auscultation: Bowel Sounds: Normal Palpation: Normal Tenderness: Normal Skin: Other (subsiding cellulitis .open wound 3 cm .. no active infection , no necrosis ..) Musculoskeletal: Normal Psychiatric: Normal Mood Description: Calm and Appropriate Affect: Normal Speech Pattern: Clear and Appropriate Laboratory and Diagnostics Result Diagrams: 04/25/22 04:36 04/25/22 04:36 Labs: 04/23/22 12:19 Ankle - Right Wound Gram Stain - Final 04/23/22 12:19 Ankle - Right Wound Culture - Preliminary Laboratory WBC 10.8 X10^3/uL (3.6-10.0) H 04/25/22 04:36 RBC 5.02 X10^6/uL (4.7-6.0) 04/25/22 04:36 Hgb 15.0 g/dL (13.5-18.0) 04/25/22 04:36 Hct 42.6 % (42.0-54.0) 04/25/22 04:36 MCV 84.8 fL (80.0-100.0) 04/25/22 04:36 MCH 29.8 pg (27.0-34.0) 04/25/22 04:36 MCHC 35.2 g/dL (33.0-35.0) H 04/25/22 04:36 RDW 13.7 % (11.6-16.5) 04/25/22 04:36 Plt Count 267 X10^3/uL (150.0-450.0) 04/25/22 04:36 MPV 8.2 fL (7.4-11.0) 04/25/22 04:36 Neut % (Auto) 65.8 % (42.0-75.0) 04/25/22 04:36 Lymph % (Auto) 20.7 % (21.0-51.0) L 04/25/22 04:36 [place] % (Auto) 8.6 % (0.0-13.0) 04/25/22 04:36 Eos % (Auto) 4.3 % (0.9-2.9) H 04/25/22 04:36 Baso % (Auto) 0.6 % (0.2-1.0) 04/25/22 04:36 Neut # (Auto) 7.1 x10^3/uL (2.2-4.8) H 04/25/22 04:36 Lymph # (Auto) 2.2 X10^3/uL (1.3-2.9) 04/25/22 04:36 [place] # (Auto) 0.9 x10^3/uL (0.3-0.8) H 04/25/22 04:36 Eos # (Auto) 0.5 x10^3/uL (0.0-0.2) H 04/25/22 04:36 Baso # (Auto) 0.1 X10^3/uL (0.0-0.1) 04/25/22 04:36 Absolute Nucleated RBC 0.0 /100WBC 04/25/22 04:36 Sodium 137 mmol/L (136-145) 04/25/22 04:36 Corrected Sodium TNP 04/25/22 04:36 Potassium 3.6 mmol/L (3.5-5.1) 04/25/22 04:36 Chloride 102 mmol/L (98-107) 04/25/22 04:36 Carbon Dioxide 27.6 mmol/L (21-32) 04/25/22 04:36 BUN 7 mg/dL (7-18) 04/25/22 04:36 Creatinine 0.78 mg/dL (0.70-1.30) 04/25/22 04:36 Est GFR (MDRD) Af Amer > 60 (>60) 04/25/22 04:36 Est GFR (MDRD) Non-Af > 60 (>60) 04/25/22 04:36 Glucose 101 mg/dL (65-99) H 04/25/22 04:36 Calcium 8.8 mg/dL (8.5-10.1) 04/25/22 04:36 Corrected Calcium TNP 04/25/22 04:36 Magnesium 2.1 mg/dL (1.7-2.9) 04/25/22 04:36 Total Bilirubin 0.40 mg/dL (0.2-1.0) 04/25/22 04:36 AST 16 Units/L (15-37) 04/25/22 04:36 ALT 25 Units/L (12-78) 04/25/22 04:36 Alkaline Phosphatase 75 Units/L (75-270) 04/25/22 04:36 Total Protein 7.5 g/dL (6.4-8.2) 04/25/22 04:36 Albumin 3.7 g/dL (3.4-5.0) 04/25/22 04:36 Globulin 3.8 g/dL (2.5-4.5) 04/25/22 04:36 Albumin/Globulin Ratio 1.0 Ratio (1.1-2.1) L 04/25/22 04:36 SARS-CoV-2 (PCR) Negative (NEGATIVE) 04/21/22 23:01 Influenza Type A (PCR) Negative (NEGATIVE) 04/21/22 23:01 Influenza Type B (PCR) Negative (NEGATIVE) 04/21/22 23:01 RSV (PCR) Negative (NEGATIVE) 04/21/22 23:01 Plan (1) Ankle cellulitis: Status: Acute Narrative Support Text: The ankle infection where he had an I&D is healing well. Infection is subsiding Plan: IV abx (2) Abscess of ankle: Status: Acute Plan: I&D today
[2022-04-26] MEDS: CLEOCIN 600 MG IV PREMIX 600 MG/50 ML BAG IV SCH (05:26)
[2022-04-26] MEDS: NS 1,000 ML IV 1,000 ML IV SCH ×2 (05:26→09:08)
[2022-04-26 05:40] LABS: BASOPHILS # (AUTO) 0.1 X10^3/uL (0.0-0.1); BASOPHILS % (AUTO) 0.7 % (0.2-1.0); EOSINOPHILS # (AUTO) 0.5 x10^3/uL (0.0-0.2); EOSINOPHILS % (AUTO) 4.4 % (0.9-2.9); HEMATOCRIT 43.4 % (42.0-54.0); HEMOGLOBIN 15.3 g/dL (13.5-18.0); LYMPHOCYTES # (AUTO) 2.2 X10^3/uL (1.3-2.9); LYMPHOCYTES % (AUTO) 20.3 % (21.0-51.0); MEAN CORPUSCULAR HEMOGLOBIN 29.7 pg (27.0-34.0); MEAN CORPUSCULAR HGB CONC 35.2 g/dL (33.0-35.0); MEAN CORPUSCULAR VOLUME 84.4 fL (80.0-100.0); MEAN PLATELET VOLUME 8.2 fL (7.4-11.0); MONOCYTES # (AUTO) 0.9 x10^3/uL (0.3-0.8); MONOCYTES % (AUTO) 8.2 % (0.0-13.0); NEUTROPHILS # (AUTO) 7.3 x10^3/uL (2.2-4.8); NEUTROPHILS % (AUTO) 66.4 % (42.0-75.0); RED BLOOD COUNT 5.14 X10^6/uL (4.7-6.0); RED CELL DISTRIBUTION WIDTH 13.5 % (11.6-16.5); WHITE BLOOD COUNT 10.9 X10^3/uL (3.6-10.0)
[2022-04-26 05:51] LABS: ALANINE AMINOTRANSFERASE 23 Units/L (12-78); ALBUMIN 3.8 g/dL (3.4-5.0); ALKALINE PHOSPHATASE 76 Units/L (75-270); ASPARTATE AMINO TRANSFERASE 16 Units/L (15-37); BLOOD UREA NITROGEN 10 mg/dL (7-18); CARBON DIOXIDE 26.5 mmol/L (21-32); CHLORIDE 101 mmol/L (98-107); CREATININE 0.84 mg/dL (0.70-1.30); SODIUM 136 mmol/L (136-145); TOTAL PROTEIN 7.7 g/dL (6.4-8.2); eGFR NON BLACK RACES > 60 (>60)
[2022-04-26] MEDS: ZOSYN VIAL 3.375 GRAMS 3.375 G in NS 100 ML IV 100 ML IV SCH (06:04)
[2022-04-26] MEDS: K-DUR TAB 20 MEQ PO PRN (06:24)
[2022-04-26 11:42] VITALS: BP 104/64
--- NOTE | 2022-04-26 19:46 | PCM.DCPLAN ---
DISCHARGE SUMMARY Admission Date Date of Admission: 04/22/22 Discharge Date Discharge Date: 04/26/22 Admission Diagnoses (1) Ankle cellulitis: Status: Acute (2) Abscess of ankle: Status: Acute Discharge Diagnoses Discharge Diagnosis: 1. Ankle tenosynovitis status post I&D 2. Ankle cellulitis status post stingray injury Discharge Medications Discharge Medications: Home Medication List cephalexin 500 mg capsule 1 cap PO TID 04/21/22 [History] doxycycline hyclate 100 mg capsule 1 cap PO BID 04/21/22 [History] ciprofloxacin 500 mg/5 mL oral suspension (Cipro) 500 mg (5 mL) PO Q12H #14 mL 04/26/22 [Rx] Prescriptions: [facility]Cipro[facility] Vital Signs: Temperature 98.3 F Pulse Rate [Bilateral Radial] 70 Pulse Rate [Left Brachial] 62 Pulse Rate 91 Respiratory Rate 18 Blood Pressure [Right Arm] 104/64 Blood Pressure [Left Arm] 124/61 Blood Pressure 122/73 O2 Sat by Pulse Oximetry 98 Latest Lab Results: Laboratory Last Values WBC 10.9 X10^3/uL (3.6-10.0) H 04/26/22 04:34 RBC 5.14 X10^6/uL (4.7-6.0) 04/26/22 04:34 Hgb 15.3 g/dL (13.5-18.0) 04/26/22 04:34 Hct 43.4 % (42.0-54.0) 04/26/22 04:34 MCV 84.4 fL (80.0-100.0) 04/26/22 04:34 MCH 29.7 pg (27.0-34.0) 04/26/22 04:34 MCHC 35.2 g/dL (33.0-35.0) H 04/26/22 04:34 RDW 13.5 % (11.6-16.5) 04/26/22 04:34 Plt Count 275 X10^3/uL (150.0-450.0) 04/26/22 04:34 MPV 8.2 fL (7.4-11.0) 04/26/22 04:34 Neut % (Auto) 66.4 % (42.0-75.0) 04/26/22 04:34 Lymph % (Auto) 20.3 % (21.0-51.0) L 04/26/22 04:34 [place] % (Auto) 8.2 % (0.0-13.0) 04/26/22 04:34 Eos % (Auto) 4.4 % (0.9-2.9) H 04/26/22 04:34 Baso % (Auto) 0.7 % (0.2-1.0) 04/26/22 04:34 Neut # (Auto) 7.3 x10^3/uL (2.2-4.8) H 04/26/22 04:34 Lymph # (Auto) 2.2 X10^3/uL (1.3-2.9) 04/26/22 04:34 [place] # (Auto) 0.9 x10^3/uL (0.3-0.8) H 04/26/22 04:34 Eos # (Auto) 0.5 x10^3/uL (0.0-0.2) H 04/26/22 04:34 Baso # (Auto) 0.1 X10^3/uL (0.0-0.1) 04/26/22 04:34 Absolute Nucleated RBC 0.0 /100WBC 04/26/22 04:34 Sodium 136 mmol/L (136-145) 04/26/22 04:34 Corrected Sodium TNP 04/26/22 04:34 Potassium 3.6 mmol/L (3.5-5.1) 04/26/22 04:34 Chloride 101 mmol/L (98-107) 04/26/22 04:34 Carbon Dioxide 26.5 mmol/L (21-32) 04/26/22 04:34 BUN 10 mg/dL (7-18) 04/26/22 04:34 Creatinine 0.84 mg/dL (0.70-1.30) 04/26/22 04:34 Est GFR (MDRD) Af Amer > 60 (>60) 04/26/22 04:34 Est GFR (MDRD) Non-Af > 60 (>60) 04/26/22 04:34 Glucose 98 mg/dL (65-99) 04/26/22 04:34 Calcium 9.0 mg/dL (8.5-10.1) 04/26/22 04:34 Corrected Calcium TNP 04/26/22 04:34 Magnesium 2.1 mg/dL (1.7-2.9) 04/25/22 04:36 Total Bilirubin 0.30 mg/dL (0.2-1.0) 04/26/22 04:34 AST 16 Units/L (15-37) 04/26/22 04:34 ALT 23 Units/L (12-78) 04/26/22 04:34 Alkaline Phosphatase 76 Units/L (75-270) 04/26/22 04:34 Total Protein 7.7 g/dL (6.4-8.2) 04/26/22 04:34 Albumin 3.8 g/dL (3.4-5.0) 04/26/22 04:34 Globulin 3.9 g/dL (2.5-4.5) 04/26/22 04:34 Albumin/Globulin Ratio 1.0 Ratio (1.1-2.1) L 04/26/22 04:34 SARS-CoV-2 (PCR) Negative (NEGATIVE) 04/21/22 23:01 Influenza Type A (PCR) Negative (NEGATIVE) 04/21/22 23:01 Influenza Type B (PCR) Negative (NEGATIVE) 04/21/22 23:01 RSV (PCR) Negative (NEGATIVE) 04/21/22 23:01 Hospital Course: Following admission the patient was continued on IV antibiotics. He was given Zosyn and IV clindamycin. General surgeon Dr. Lamar was consulted in which he did I&D the following day. CT revealed that there was no blood collapse abscess but phlegmon was seen. He was continued on IV antibiotics for several days with significant improvement. Yesterday we removed the bandage and he had little to no erythema Dr. Gage remove the packing and by this morning he was still looking good is not infected at this time. We decided go ahead and discharge him home on p.o. antibiotics. We decided to go ahead and discharge him home p.o. ciprofloxacin.
== END 2022-04-26 13:00 | disposition home or self-care (01) | DRG 603 ==
LOC: U 17:04 → ER 17:04 → OBSVTOIN 23:02 → U 23:29 → MED/SURG 04-22 16:17
PROVIDERS: ADMIT Internal Medicine; ATTEND Internal Medicine
DX: Y92.9 Unspecified place or not applicable; Z20.822 Contact with and (suspected) exposure to COVID-19; L03.115 Cellulitis of right lower limb; M65.171 Other infective (teno)synovitis, right ankle and foot; T63.511A Toxic effect of contact with stingray, accidental (unintentional), initial encounter; L02.415 Cutaneous abscess of right lower limb